=== PATIENT | female | born 1945 | race Asian ===

== ENCOUNTER 2016-04-15 03:11 | Emergency (ER) | payer OTHER, BC ==
[2016-04-15] MEDS ORDERED: ALBUTEROL SO4 2.5/IPRATROPIUM 0.5 INH SOL 3 ML VIAL.NEB. NEB ONE ×2 (03:31→03:49)
[2016-04-15] MEDS ORDERED: METOCLOPRAMIDE HCL INJECTION 10 MG/2 ML VIAL IVPB ONE (03:31)
[2016-04-15] MEDS ORDERED: SODIUM CHLORIDE 1,000 ML IV STA (03:31)
--- NOTE | 2016-04-15 03:39 | PDOC ---
History of Present Illness - General Chief Complaint: Respiratory Stated Complaint: COUGH,RESPIRATORY Time Seen by Provider: 04/15/16 03:17 History Source: Patient Exam Limitations: No Limitations - History of Present Illness Initial Comments: 04/15/16 03:33 71yo Female patient presents to ED c/o diff breathing x 2 days with persistent cough becoming worse. Patient reports PmHx: VT, Stent placement, ACS, GERD, Gastric ulcer. Patient states she has had no appetite, very nauseous with retching. She denies CP, back pain, fever, dysuria, hematuria, rectal bleeding, or any other complaints at this time. Timing/Duration: reports: week Severity: reports: moderate Possible Cause: Yes: no prior episodes Modifying Factors: worse with: activity, albuterol inhaler, albuterol nebulizer , antibiotics, coughing, lying down, oxygen, rest, other Associated Symptoms: reports: cough Aspirin Received prior to arrival: No: no aspirin today, unknown, 81 mg x 1, 81 mg x 2, 81 mg x 3, 81 mg x 4, 325 mg x 1, provided at home, provided by EMS, provided by ED Past History - Travel Traveled outside of the country in the last 30 days: No Close contact w/someone who was outside of country & ill: No - Past Medical History Allergies/Adverse Reactions: Allergies Allergy/AdvReac Type Severity Reaction Status Date / Time No Known Allergies Allergy Verified 04/15/16 03:23 Home Medications: Ambulatory Orders Glimepiride [Amaryl] 4 mg PO DAILY 05/07/11 Sitagliptin Phosphate [Januvia] 100 mg PO HS 05/07/11 Aspirin [ASA -] 81 mg PO DAILY 09/17/14 Metoprolol Succinate [Toprol Xl] 50 mg PO BID 09/17/14 Brimonidine Tartrate [Alphagan P 0.1% -] 1 drop OU BID drops 09/26/14 Timolol 0.5% [Timoptic 0.5%] 1 drop OU BID drops 09/26/14 Losartan Potassium 50 mg PO BID 06/24/15 Latanoprost 0.005% Eye Drops [Xalatan 0.005% Eye Drops -] 1 drop HS 06/26/15 Levothyroxine [Synthroid -] 75 mcg PO DAILY@0700 03/10/16 Omeprazole 40 mg PO DAILY #0 capsule. 03/11/16 Azithromycin [Zithromax -] 250 mg PO DAILY #4 tablet 04/15/16 Benzonatate [Tessalon Pearls -] 100 mg PO TID PRN #21 capsule 04/15/16 Prednisone [Deltasone -] 10 mg PO ASDIR #12 tab 04/15/16 Anemia: No Asthma: No Cancer: No Cardiac Disorders: Yes (CAD;pacemaker([employer]TRON[employer])) CVA: No COPD: No CHF: No Dementia: No Diabetes: Yes (NIDDM) GI Disorders: No Disorders: No HTN: Yes Hypercholesterolemia: No Liver Disease: No Seizures: No Thyroid Disease: Yes (HYPO) - Surgical History Abdominal Surgery: No Appendectomy: No Cardiac Surgery: Yes (ANGIOGRAM, STENTS X 2) Cholecystectomy: No Lung Surgery: No Neurologic Surgery: No Orthopedic Surgery: Yes (fracture of the left foot;ANKLE FX) - Immunization History Immunization Up to Date: Yes - Psycho/Social/Smoking Cessation Hx Anxiety: No Suicidal Ideation: No Smoking Status: No Smoking History: Never smoked Have you smoked in the past 12 months: No Number of Cigarettes Smoked Daily: 0 Cigars Per Day: 0 Information on smoking cessation initiated: No Hx Alcohol Use: No Drug/Substance Use Hx: No Substance Use Type: None Respiratory Specific PMHX - Complaint Specific PMHX Angina: No Bronchitis: No Pneumonia: No Pulmonary Embolus: No TB (Tuberculosis): No Review of Systems - Review of Systems Able to Perform ROS?: Yes Is the patient limited Wolof proficient: No Constitutional: No: Chills, Fever HEENTM: No: Ear Pain, Throat Pain, Throat Swelling Respiratory: Yes: Cough, Shortness of Breath. No: Hemoptysis Cardiac (ROS): Yes: Chest Tightness. No: Chest Pain, Lightheadedness, Palpitations ABD/GI: Yes: Nausea, Poor Appetite, Vomiting. No: Constipated, Diarrhea : No: Burning, Dysuria, Frequency, Flank Pain, Hematuria Musculoskeletal: No: Back Pain Integumentary: No: Bruising, Rash Neurological: No: Headache Psychiatric: Yes: Change in Appetite. No: Anxiety All Other Systems: Reviewed and Negative *Physical Exam - Vital Signs Last Vital Signs Temp Pulse Resp BP Pulse Ox 98.0 F 87 20 163/80 100 04/15/16 03:23 04/15/16 03:23 04/15/16 03:23 04/15/16 03:23 04/15/16 03:23 - Physical Exam General Appearance: Yes: Nourished, Mild Distress HEENT: positive: EOMI, KENNEDY, Normal ENT Inspection, Normal Voice, Symmetrical, TMs Normal, Pharynx Normal Neck: positive: Trachea midline, Supple Respiratory/Chest: positive: Lungs Clear, Decreased Breath Sounds Cardiovascular: positive: Regular Rhythm, Regular Rate Gastrointestinal/Abdominal: positive: Soft, Increased Bowel Sounds. negative: Tender, Tenderness Lymphatic: negative: Adenopathy Musculoskeletal: positive: Normal Inspection. 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 NML intact, Fully Oriented, Alert, Normal Mood/ Affect, Normal Response ED Treatment Course - LABORATORY CBC & Chemistry Diagram: 04/15/16 03:40 04/15/16 03:40 - RADIOLOGY Radiology Studies Ordered: Category Date Time Status CHEST CT WITH CONTRAST [CT] Stat CT Scan 04/15/16 03:31 Ordered *DC/Admit/Observation/Transfer Diagnosis at time of Disposition: Acute bronchitis Qualifiers: Bronchitis organism: unspecified organism Qualified Code(s): J20.9 - Acute bronchitis, unspecified - Discharge Dispostion Disposition: HOME Condition at time of disposition: Improved Admit: No - Prescriptions Prescriptions: Prednisone [Deltasone -] 10 mg PO ASDIR #12 tab Benzonatate [Tessalon Pearls -] 100 mg PO TID PRN #21 capsule PRN Reason: Cough Azithromycin [Zithromax -] 250 mg PO DAILY #4 tablet - Patient Instructions Printed Discharge Instructions: DI for Acute Bronchitis Additional Instructions: FOLLOW UP WITH YOUR PRIMARY CARE PROVIDER THIS WEEK FOR FURTHER EVALUATION. TAKE MEDICATIONS PRESCRIBED. Print Language: TURKISH
[2016-04-15 03:46] LABS: BASOPHIL 0.4 % (0-2.0); EOSINOPHIL 1.3 % (0-4.5); MCH 25.2 pg (25.7-33.7); MCHC 31.3 g/dl (32.0-36.0); MEAN CELL VOLUME 80.5 fl (80-96); MEAN PLT VOLUME 7.4 fl (7.5-11.1); NEUTROPHILS 79.5 % (42.8-82.8); PLATELET COUNT 225 K/MM3 (134-434); WHITE BLOOD COUNT 9.5 K/mm3 (4.0-10.0)
[2016-04-15 03:49] VITALS: TEMP 98; BMI 25.6
[2016-04-15 04:08] LABS: ALBUMIN 3.3 g/dl (3.4-5.0); BILIRUBIN,DIRECT 0.1 mg/dL (0.0-0.2); BILIRUBIN,TOTAL 0.4 mg/dL (0.2-1.0); CALCIUM 8.6 mg/dL (8.5-10.1); CREATININE 1.1 mg/dL (0.55-1.02); TOT PROT 7.2 g/dl (6.4-8.2)
[2016-04-15 04:16] LABS: TROPONIN I < 0.02 ng/ml (0.00-0.05)
--- NOTE | 2016-04-15 04:48 | PDOC ---
[id number]/80 100 04/15/16 03:23 04/15/16 03:23 04/15/16 03:23 04/15/16 03:23 04/15/16 03:23 ED Treatment Course - LABORATORY CBC & Chemistry Diagram: 04/15/16 03:40 04/15/16 03:40 - ADDITIONAL ORDERS Additional order review: Laboratory Results 04/15/16 04/15/16 03:40 03:40 Sodium 136 Potassium 4.3 Chloride 99 Carbon Dioxide 27 Anion Gap 10 BUN 15 D Creatinine 1.1 H Random Glucose 146 H D Calcium 8.6 Total Bilirubin 0.4 Direct Bilirubin 0.1 AST 15 ALT 17 Alkaline Phosphatase 111 D Creatine Kinase 61 Troponin I < 0.02 B-Natriuretic Peptide 8236.84 H Total Protein 7.2 Albumin 3.3 L 04/15/16 03:40 RBC 4.24 MCV 80.5 MCHC 31.3 L RDW 15.0 MPV 7.4 L Neutrophils % 79.5 Lymphocytes % 9.5 D Monocytes % 9.3 Eosinophils % 1.3 Basophils % 0.4 - Medications Given in the ED: ED Medications Discontinued Medications Generic Name Dose Route Start Last Admin Trade Name Freq PRN Reason Stop Dose Admin Albuterol/Ipratropium 1 amp 04/15/16 03:31 04/15/16 03:47 Duoneb - NEB 04/15/16 03:32 1 amp ONCE ONE Administration Sodium Chloride 1,000 mls @ 1,000 mls/hr 04/15/16 03:31 04/15/16 03:46 Normal Saline - IV 04/15/16 04:30 1,000 mls/hr ASDIR STA Administration Metoclopramide HCl 10 mg 04/15/16 03:31 04/15/16 03:47 Reglan Injection - IVPB 04/15/16 03:32 10 mg ONCE ONE Administration Medical Decision Making - Medical Decision Making 04/15/16 04:48 [facility] with care from [facility]mit/Observation/Transfer Diagnosis at time of Disposition: Acute bronchitis - Discharge Dispostion Disposition: HOME - Prescriptions Prescriptions: Prednisone [Deltasone -] 10 mg PO ASDIR #12 tab Benzonatate [Tessalon Pearls -] 100 mg PO TID PRN #21 capsule PRN Reason: Cough Azithromycin [Zithromax -] 250 mg PO DAILY #4 tablet - Referrals Referrals: Jia Daniels [Primary Care Provider] - - Patient Instructions Printed Discharge Instructions: DI for Acute Bronchitis Additional Instructions: FOLLOW UP WITH YOUR PRIMARY CARE PROVIDER THIS WEEK FOR FURTHER EVALUATION. TAKE MEDICATIONS PRESCRIBED. Print Language: SERBIAN
[2016-04-15] MEDS ORDERED: AZITHROMYCIN 250 MG TABLET (FP) PO ONE (05:40)
[2016-04-15] MEDS ORDERED: methylPREDNISolone NA SUCC 125 MG/2 ML VIAL IVPB ONE (05:40)
[2016-04-15 05:44] VITALS: BP 120/67; PULSE 70
[2016-04-15] MEDS ORDERED: methylPREDNISolone NA SUCC 125 MG/2 ML VIAL ONE (05:48)
[2016-04-15] MEDS ORDERED: AZITHROMYCIN 250 MG TABLET (FP) ONE (05:48)
--- NOTE | 2016-04-15 18:14 | EKG ---
Test Reason : Blood Pressure : / mmHG Vent. Rate : 077 BPM Atrial Rate : 077 BPM P-R Int : 174 ms QRS Dur : 178 ms QT Int : 480 ms P-R-T Axes : 065 -34 116 degrees QTc Int : 543 ms VENTRICULAR PACED RHYTHM ABNORMAL ECG WHEN COMPARED WITH ECG OF 25-JUN-2015 09:22, VENT. RATE HAS INCREASED BY 17 BPM Confirmed by HEATHER HURLEY MD ([id number]) on 04/15/2016 6:14:23 PM Referred By: Confirmed By:HEATHER HURLEY MD
== END 2016-04-15 05:56 | disposition home or self-care (01) ==
LOC: JER 03:11
PROC: 3E0F7GC Introduction of Other Therapeutic Substance into Respiratory Tract, Via Natural or Artificial Opening (ICD-10-PCS; principal; 2016-04-15)
PROC: 3E0333Z Introduction of Anti-inflammatory into Peripheral Vein, Percutaneous Approach (ICD-10-PCS; 2016-04-15)
PROC: 3E033GC Introduction of Other Therapeutic Substance into Peripheral Vein, Percutaneous Approach (ICD-10-PCS; 2016-04-15)
DX: J20.9 Acute bronchitis, unspecified (principal); I25.10 Atherosclerotic heart disease of native coronary artery without angina pectoris; I10 Essential (primary) hypertension; Z95.5 Presence of coronary angioplasty implant and graft; I25.2 Old myocardial infarction; E11.9 Type 2 diabetes mellitus without complications; Z79.84 Long term (current) use of oral hypoglycemic drugs; E03.9 Hypothyroidism, unspecified; Z95.0 Presence of cardiac pacemaker
CPT/HCPCS: 36415; 71260-TC; 80048; 80076; 82550; 83880; 84484; 85025; 93005; 93010; 94640; 96374; 96375; 99282-25

== ENCOUNTER 2020-09-14 01:00 | Inpatient (IN) | payer OTHER, BC ==
[2020-09-14 02:25] LABS: BASO % 0.4 % (0-2.0); EOS % 1.5 % (0-4.5); HEMATOCRIT 32.2 % (32.4-45.2); LYMPH % 22.9 % (8-40); MCH 26.3 pg (25.7-33.7); MCHC 34.1 g/dl (32.0-36.0); MEAN CELL VOLUME 77.1 fl (80-96); MEAN PLT VOLUME 6.2 fl (7.5-11.1); MONO % 9.9 % (3.8-10.2); NEUT % 65.3 % (42.8-82.8); PLATELET COUNT 196 K/MM3 (134-434); RBC 4.18 M/mm3 (3.60-5.2); WHITE BLOOD COUNT 6.8 K/mm3 (4.0-10.0)
[2020-09-14 02:45] LABS: CALCIUM 9.1 mg/dL (8.5-10.1)
[2020-09-14 02:46] LABS: ALBUMIN 3.8 g/dl (3.4-5.0); BLOOD UREA NITROGEN 36.6 mg/dL (7-18)
[2020-09-14 02:49] LABS: CREATININE 1.5 mg/dL (0.55-1.3)
[2020-09-14 02:50] LABS: BILIRUBIN,TOTAL 0.6 mg/dL (0.2-1)
[2020-09-14 02:51] LABS: TOT PROT 7.2 g/dl (6.4-8.2)
[2020-09-14] MEDS ORDERED: DEXTROSE 50%-WATER - 25 GM/50 ML VIAL IVPUSH ONE (03:06)
[2020-09-14] MEDS ORDERED: INSULIN REGULAR HUMAN 100 UNITS/ML *VIAL IVPUSH ONE (03:07)
[2020-09-14] MEDS ORDERED: DEXTROSE 50%-WATER 25 GM/50 ML DISP.SYRIN ONE (04:18)
[2020-09-14] MEDS ORDERED: SODIUM CHLORIDE 1,000 ML IV SCH (04:30)
[2020-09-14 06:40] LABS: PH,URINE 6.5 (5.0-8.0); URINE APPEARANCE CLEAR; URINE BILIRUBIN NEGATIVE (NEGATIVE); URINE COLOR YELLOW; URINE GLUCOSE (UA) TRACE (NEGATIVE); URINE KETONE NEGATIVE (NEGATIVE); URINE LEUK ESTERASE NEGATIVE (NEGATIVE); URINE NITRITE NEGATIVE (NEGATIVE); URINE PROTEIN NEGATIVE (NEGATIVE); URINE UROBILINOGEN 0.2 mg/dL (0.2-1.0)
[2020-09-14] MEDS ORDERED: SODIUM CHLORIDE 250 ML IV STA (06:49)
[2020-09-14 07:38] LABS: BASO % 0.3 % (0-2.0); EOS % 1.4 % (0-4.5); HEMATOCRIT 32.6 % (32.4-45.2); HEMOGLOBIN 10.7 GM/dL (10.7-15.3); LYMPH % 21.3 % (8-40); MCH 25.8 pg (25.7-33.7); MCHC 32.9 g/dl (32.0-36.0); MEAN CELL VOLUME 78.4 fl (80-96); MEAN PLT VOLUME 6.8 fl (7.5-11.1); MONO % 10.4 % (3.8-10.2); NEUT % 66.6 % (42.8-82.8); PLATELET COUNT 192 K/MM3 (134-434); RBC 4.16 M/mm3 (3.60-5.2); WHITE BLOOD COUNT 5.8 K/mm3 (4.0-10.0)
[2020-09-14 07:53] LABS: CALCIUM 8.8 mg/dL (8.5-10.1)
[2020-09-14 07:54] LABS: ALBUMIN 3.4 g/dl (3.4-5.0); BLOOD UREA NITROGEN 35.8 mg/dL (7-18); MAGNESIUM 2.5 mg/dL (1.8-2.4)
[2020-09-14 07:57] LABS: CREATININE 1.5 mg/dL (0.55-1.3); PHOSPHOROUS 3.4 mg/dL (2.5-4.9)
[2020-09-14 07:58] LABS: BILIRUBIN,TOTAL 0.8 mg/dL (0.2-1); TOT PROT 6.7 g/dl (6.4-8.2)
[2020-09-14] MEDS ORDERED: HEPARIN NA (PORCINE) 5,000 UNITS/ML 1ML VIAL ONE (08:17)
[2020-09-14] MEDS: HEPARIN NA (PORCINE) 5,000 UNITS/ML 1ML VIAL SQ SCH ×3 (09:11→21:49)
[2020-09-14] MEDS ORDERED: LOSARTAN POTASSIUM 50 MG TABLET PO SCH (10:00)
[2020-09-14] MEDS ORDERED: amLODIPine BESYLATE 2.5 MG TABLET (FP) PO SCH ×2 (10:00→12:30)
[2020-09-14] MEDS ORDERED: ASPIRIN 81 MG CHEWABLE TABLETS PO SCH (10:00)
[2020-09-14] MEDS ORDERED: LOSARTAN POTASSIUM 50 MG TABLET ONE (10:34)
[2020-09-14] MEDS ORDERED: ASPIRIN 81 MG CHEWABLE TABLETS ONE (10:34)
[2020-09-14] MEDS ORDERED: amLODIPine BESYLATE 2.5 MG TABLET (FP) ONE (10:34)
[2020-09-14 10:41] LABS: EPI CELLS 2 /uL (0-25.1); HYALINE CASTS 0 /uL (0-3.1); PH,URINE 6.5 (5.0-8.0); URINE APPEARANCE CLEAR; URINE BACTERIA 10 /uL (0-1359); URINE BILIRUBIN NEGATIVE (NEGATIVE); URINE COLOR YELLOW; URINE GLUCOSE (UA) NEGATIVE (NEGATIVE); URINE KETONE NEGATIVE (NEGATIVE); URINE LEUK ESTERASE NEGATIVE (NEGATIVE); URINE NITRITE NEGATIVE (NEGATIVE); URINE PROTEIN NEGATIVE (NEGATIVE); URINE RBC 3 /uL (0-23.9); URINE UROBILINOGEN 0.2 mg/dL (0.2-1.0); URINE WBC 0 /uL (0-25.8)
[2020-09-14] MEDS ORDERED: INSULIN SLIDING SCALE (NOVOLOG) 1 VIAL SQ SCH (11:00)
[2020-09-14] MEDS ORDERED: DEXTROSE 5%-NORMAL SALINE 1,000 ML IV SCH (11:00)
[2020-09-14] MEDS: INSULIN SLIDING SCALE (NOVOLOG) 1 VIAL SQ SCH ×3 (12:13→22:35)
[2020-09-14] MEDS ORDERED: LEVOTHYROXINE NA 75 MCG TABLET (FP) PO SCH (12:27)
[2020-09-14] MEDS: amLODIPine BESYLATE 5 MG TABLET (FP) PO SCH (13:41)
[2020-09-14] MEDS: LOSARTAN POTASSIUM 50 MG TABLET PO SCH ×2 (13:41→21:48)
[2020-09-14] MEDS: SODIUM CHLORIDE 1,000 ML IV SCH (13:42)
[2020-09-14] MEDS: ASPIRIN 81 MG CHEWABLE TABLETS PO SCH (13:42)
[2020-09-14] MEDS: LEVOTHYROXINE NA 75 MCG TABLET (FP) PO SCH (13:44)
[2020-09-14 15:28] LABS: BLOOD UREA NITROGEN 32.6 mg/dL (7-18); CALCIUM 8.8 mg/dL (8.5-10.1)
[2020-09-14 15:31] LABS: CREATININE 1.2 mg/dL (0.55-1.3)
[2020-09-14] MEDS: POLYETHYLENE GLYCOL 3350 119 GM BTL PO SCH (15:41)
[2020-09-14 18:32] LABS: BLOOD UREA NITROGEN 32.9 mg/dL (7-18)
[2020-09-14 18:36] LABS: CREATININE 1.2 mg/dL (0.55-1.3)
[2020-09-14 19:55] VITALS: PULSE 50; BMI 23.5
[2020-09-14] MEDS: BRIMONIDINE TARTRATE 0.1% OPHTHALMIC 5 ML BOTTLE OU SCH (21:49)
[2020-09-14] MEDS: DORZOLAMIDE 2% HCL OPHTHALMIC SOLUTION 10 ML BOTTLE OD SCH (21:50)
[2020-09-14] MEDS: TIMOLOL 0.5% OPHTHALMIC SOL 5 ML BOTTLE OD SCH (21:51)
[2020-09-14] MEDS ORDERED: LATANOPROST 0.005% OPHTH SOLN 2.5ML BOTTLE OS SCH (22:00)
[2020-09-14] MEDS ORDERED: PATIENT'S OWN MEDICATION (NON-FORMULARY) (Dorzolamide/Timolol/Pf [Cosopt Pf Eye Drops] 1 E OD SCH (22:00)
[2020-09-14] MEDS ORDERED: ROSUVASTATIN CA 10 MG TABLET (FP) PO SCH (22:00)
[2020-09-14] MEDS ORDERED: PATIENT'S OWN MEDICATION (NON-FORMULARY) (Dorzolamide/Timolol/Pf [Cosopt Pf Eye Drops] 1 E OP SCH (22:00)
[2020-09-15] MEDS: SODIUM CHLORIDE 1,000 ML IV SCH (01:12)
[2020-09-15 01:52] LABS: CALCIUM 9.1 mg/dL (8.5-10.1)
[2020-09-15 01:53] LABS: BLOOD UREA NITROGEN 29.6 mg/dL (7-18)
[2020-09-15 01:57] LABS: CREATININE 1.1 mg/dL (0.55-1.3)
[2020-09-15 05:11] VITALS: TEMP 97.5
[2020-09-15] MEDS: INSULIN SLIDING SCALE (NOVOLOG) 1 VIAL SQ SCH ×2 (06:10→14:03)
[2020-09-15] MEDS: HEPARIN NA (PORCINE) 5,000 UNITS/ML 1ML VIAL SQ SCH ×2 (06:12→15:21)
[2020-09-15] MEDS: LEVOTHYROXINE NA 75 MCG TABLET (FP) PO SCH (06:35)
[2020-09-15] MEDS ORDERED: glipiZIDE 5 MG TABLET (FP) PO ONE (08:45)
[2020-09-15 09:50] LABS: HEMATOCRIT 33.7 % (32.4-45.2); MCH 25.8 pg (25.7-33.7); MCHC 32.5 g/dl (32.0-36.0); MEAN CELL VOLUME 79.3 fl (80-96); MEAN PLT VOLUME 7.2 fl (7.5-11.1); PLATELET COUNT 194 K/MM3 (134-434); RBC 4.26 M/mm3 (3.60-5.2); RDW 14.4 % (11.6-15.6); WHITE BLOOD COUNT 5.9 K/mm3 (4.0-10.0)
[2020-09-15] MEDS: LOSARTAN POTASSIUM 50 MG TABLET PO SCH (09:58)
[2020-09-15] MEDS: amLODIPine BESYLATE 5 MG TABLET (FP) PO SCH (09:58)
[2020-09-15] MEDS: POLYETHYLENE GLYCOL 3350 119 GM BTL PO SCH (09:59)
[2020-09-15] MEDS: DORZOLAMIDE 2% HCL OPHTHALMIC SOLUTION 10 ML BOTTLE OD SCH (10:00)
[2020-09-15] MEDS: BRIMONIDINE TARTRATE 0.1% OPHTHALMIC 5 ML BOTTLE OU SCH (10:00)
[2020-09-15] MEDS: ASPIRIN 81 MG CHEWABLE TABLETS PO SCH (10:00)
[2020-09-15] MEDS: TIMOLOL 0.5% OPHTHALMIC SOL 5 ML BOTTLE OD SCH (10:00)
[2020-09-15] MEDS ORDERED: FAMOTIDINE 20 MG TABLET PO SCH (10:00)
[2020-09-15 10:10] LABS: CALCIUM 9.1 mg/dL (8.5-10.1)
[2020-09-15 10:11] LABS: BLOOD UREA NITROGEN 25.7 mg/dL (7-18)
[2020-09-15] MEDS ORDERED: amLODIPine BESYLATE 2.5 MG TABLET (FP) PO SCH (12:15)
[2020-09-15 16:09] VITALS: BP 147/74
== END 2020-09-15 16:33 | disposition home or self-care (01) | DRG 641 ==
LOC: JER 01:00 → JERBED 05:12 → J6S 10:40
PROVIDERS: ADMIT Hospitalist; ATTEND Student in an Organized Health Care Education/Training Program
DX: E87.1 Hypo-osmolality and hyponatremia (principal); E87.5 Hyperkalemia; I25.2 Old myocardial infarction; Z95.0 Presence of cardiac pacemaker; E03.9 Hypothyroidism, unspecified; E86.1 Hypovolemia; K59.00 Constipation, unspecified; I12.9 Hypertensive chronic kidney disease with stage 1 through stage 4 chronic kidney disease, or unspecified chronic kidney disease; E11.22 Type 2 diabetes mellitus with diabetic chronic kidney disease; E11.51 Type 2 diabetes mellitus with diabetic peripheral angiopathy without gangrene; E06.3 Autoimmune thyroiditis; N18.30 Chronic kidney disease, stage 3 unspecified; Z79.4 Long term (current) use of insulin
CPT/HCPCS: 36415; 71045-TC-FY; 76775-TC; 80048; 80053; 81003; 82533; 82570; 82962; 83036; 83735; 83930; 83935; 84100; 84295; 84300; 84439; 84443; 85025; 85027; 87086; 93005; 93010; 99285-25; C9803; J1644; U0003; U0005

== ENCOUNTER 2022-02-15 12:53 | Emergency (ER) | payer OTHER, BC ==
[2022-02-15 12:56] VITALS: BP 152/58; PULSE 60; RESP 18; TEMP 97.9; BMI 34.7
[2022-02-15 14:47] LABS: THROAT:GRP A STREP NOT DETECTED (NOTDETECTED)
== END 2022-02-15 14:20 | disposition home or self-care (01) ==
LOC: JER 12:53
DX: J04.0 Acute laryngitis (principal)
CPT/HCPCS: 0241U-QW; 87651; 99283-25

== ENCOUNTER 2022-03-10 04:01 | Day surgery (SDC) | payer OTHER, BC ==
[2022-02-13 13:49] VITALS: BMI 39.9
[2022-03-10] MEDS ORDERED: PROPOFOL 40 ML ONE (06:43)
[2022-03-10] MEDS ORDERED: ONDANSETRON 4 MG/2 ML VIAL IVPUSH PRN (07:06)
[2022-03-10] MEDS ORDERED: BUPIVACAINE HCL/PF 0.25% (2.5MG/ML) 10 ML VIAL ONE (07:13)
[2022-03-10] MEDS ORDERED: LIDOCAINE HCL 1%, 10 MG/ML (20ML VIAL) ONE (07:13)
[2022-03-10] MEDS ORDERED: LACTATED RINGERS SOLUTION 1,000 ML IV SCH (07:15)
[2022-03-10] MEDS ORDERED: MIDAZOLAM HCL 2 MG/2 ML SINGLE DOSE VIAL ONE (07:30)
[2022-03-10] MEDS ORDERED: FENTANYL CITRATE/PF 50 MCG/ML VIAL ONE (07:30)
[2022-03-10] MEDS ORDERED: ceFAZolin SODIUM 1 GM VIAL ONE ×2 (07:54→08:34)
[2022-03-10] MEDS ORDERED: ceFAZolin SODIUM 1 GM VIAL IVPB ONE ×2 (08:10→08:36)
[2022-03-10] MEDS ORDERED: BUPIVACAINE HCL/PF 2.5 MG/ML - 30 ML VIAL IJ ONE (08:24)
[2022-03-10] MEDS ORDERED: LIDOCAINE HCL 1%, 10 MG/ML (20ML VIAL) SQ ONE (08:24)
[2022-03-10] MEDS ORDERED: SODIUM CHLORIDE 0.9% P/F 10 ML VIAL IJ ONE (08:35)
[2022-03-10 12:12] VITALS: BP 130/64; PULSE 64; RESP 17; TEMP 97.1
== END 2022-03-10 11:45 | disposition home or self-care (01) ==
LOC: JASU-SURG 04:01
PROVIDERS: ATTEND Internal Medicine
PROC: 0JH606Z Insertion of Pacemaker, Dual Chamber into Chest Subcutaneous Tissue and Fascia, Open Approach (ICD-10-PCS; 2022-03-10)
PROC: 0JPT0PZ Removal of Cardiac Rhythm Related Device from Trunk Subcutaneous Tissue and Fascia, Open Approach (ICD-10-PCS; principal; 2022-03-10 07:30)
DX: Z45.010 Encounter for checking and testing of cardiac pacemaker pulse generator [battery] (principal); I45.9 Conduction disorder, unspecified
CPT/HCPCS: 33228; C1785; 82962; 93005; 93010; 94760